=== PATIENT | male | born 1990 | race Caucasian/White ===

== ENCOUNTER 2018-07-12 10:07 | Emergency (ER) | payer OTHER ==
[~2018-07-12] VITALS: Ht 172.7 cm; Wt 68.0 kg
== END 2018-07-12 10:48 | disposition home or self-care (01) ==
LOC: ER 10:07
DX: S00.01XA Abrasion of scalp, initial encounter (principal); S70.211A Abrasion, right hip, initial encounter; S30.810A Abrasion of lower back and pelvis, initial encounter; V59.9XXA Occupant (driver) (passenger) of pick-up truck or van injured in unspecified traffic accident, initial encounter
CPT/HCPCS: 99282

== ENCOUNTER 2018-09-10 17:21 | Emergency (ER) | payer SELFPAY ==
[~2018-09-10] VITALS: Ht 170.2 cm; Wt 68.0 kg
[~2018-09-10 17:21] MED LIST: HYDACE5 PO; IBUP800 PO; OXYACE5T PO; RXOXYACE PO
[2018-09-10] MEDS ORDERED: TRAM50 PO (17:29)
[2018-09-10] MEDS ORDERED: Norco 10-325 T1 EACH PO (17:29)
[2018-09-10] MEDS ORDERED: Amphetamine Sal30 MG PO (17:29)
[2018-09-10 18:03] LABS: Source, Urine Voided
[2018-09-10 18:27] LABS: Appearance, Urine Clear (Clear); Bilirubin, Urine Neg (Neg); Blood, Urine Neg (Neg); Color, Urine Yellow (P-Yellow); Glucose Qualitative, Urine Neg (Neg); Ketones, Urine Neg (Neg); Leukocyte Esterase, Urine Neg (Neg); Nitrite, Urine Neg (Neg); Protein, Urine Neg (Neg); Urobilinogen, Urine NORM (Normal)
[2018-09-10] MEDS ORDERED: IBUP400 PO (19:21)
[2018-09-10] MEDS ORDERED: Vibramycin100 MG PO (19:21)
[2018-09-13 01:07] LABS: CHLAMYDIA TRACHOMATIS, NAA Negative (Negative); NEISSERIA GONORRHOEAE, NAA Negative (Negative)
== END 2018-09-10 19:40 | disposition home or self-care (01) ==
LOC: ER 17:21
PROVIDERS: Emergency Medicine
DX: N50.811 Right testicular pain (principal); Z79.899 Other long term (current) drug therapy; Z79.891 Long term (current) use of opiate analgesic
CPT/HCPCS: 36415; 76870; 81003; 87491; 87591; 96372; 99284-25; J0696